=== PATIENT | female | born 1960 ===

== ENCOUNTER 2019-11-12 08:26 | Outpatient (CLI) | payer BC, SELFPAY ==
[2019-11-14 19:29] LABS: SARS-CoV-2 RNA Undetected (Undetected); SARS-CoV-2 Specimen Source Nasopharynx
== END 2019-11-12 08:46 ==
PROVIDERS: Visit Provider Family Medicine
DX: Z11.59 Encounter for screening for other viral diseases (principal)
CPT/HCPCS: U0003